=== PATIENT | male | born 1990 | race African-American/Black ===

== ENCOUNTER 2019-10-09 11:15 | Emergency (ER) | payer MEDICAID ==
[~2019-10-09] VITALS: Ht 190.5 cm; Wt 78.0 kg
[2019-10-09] MEDS ORDERED: LIDOCAINE HCL/EPINEPHRINE 1%-EPI 1:100,000 30 ML VIAL INFIL ONE (12:30)
[2019-10-09] MEDS ORDERED: LIDOCAINE HCL/EPINEPHRINE 1%-EPI 1:100,000 20 ML VIAL INFIL NR (12:45)
[2019-10-09] MEDS ORDERED: IBUPROFEN 600MG TABLET PO ONE (13:30)
[2019-10-09 14:27] VITALS: BP 120/68
== END 2019-10-09 14:28 | disposition home or self-care (01) ==
LOC: ER 11:15
DX: S06.9X1A Unspecified intracranial injury with loss of consciousness of 30 minutes or less, initial encounter (principal); Y93.89 Activity, other specified; Y04.2XXA Assault by strike against or bumped into by another person, initial encounter; Y92.89 Other specified places as the place of occurrence of the external cause
CPT/HCPCS: 70450; 70486; 99284; A4217; J3490; Z7610